=== PATIENT | male | born 1990 | race Caucasian/White ===

== ENCOUNTER 2024-07-18 15:32 | Emergency (ER) | payer OTHER ==
[~2024-07-18] VITALS: Ht 182.9 cm; Wt 75.3 kg
[2024-07-18] MEDS ORDERED: FLUORESCEIN SOD 1 EA STRP OS ONE (18:00)
[2024-07-18] MEDS ORDERED: TETRACAINE HCL 0.5% 4 ML BTL OS ONE (18:00)
[2024-07-18] MEDS ORDERED: ERYTHROMYCIN1 GM OP (19:24)
[2024-07-18] MEDS ORDERED: ERYTHROMYCIN 1 GM TUBE OD ONE (20:00)
[2024-07-18] MEDS ORDERED: DIPHTH,PERTUSS(ACELL),TET VAC 0.5 ML SYRINGE IM ONE (20:00)
[2024-07-18] MEDS ORDERED: SUBLOCADE300 MG/1.5 SQ (20:13)
[2024-07-18] MEDS ORDERED: ACETAMINOPHEN 500 MG TAB PO ONE (20:15)
[2024-07-18 20:52] VITALS: BP 116/75
== END 2024-07-18 20:54 | disposition home or self-care (01) ==
LOC: ED 15:32
DX: S05.02XA Injury of conjunctiva and corneal abrasion without foreign body, left eye, initial encounter (principal); W22.8XXA Striking against or struck by other objects, initial encounter
CPT/HCPCS: 90471; 90715; 99283-25; A9270

== ENCOUNTER 2024-11-27 22:24 | Emergency (ER) | payer BC ==
[~2024-11-27] VITALS: Ht 182.9 cm; Wt 76.1 kg
[~2024-11-27 22:24] MED LIST: ERYTHROMYCIN1 GM OP; SUBLOCADE300 MG/1.5 SQ
[2024-11-27] MEDS ORDERED: SUMATRIPTAN SU100 MG PO (22:48)
[2024-11-27 22:57] LABS: BASOPHILS 0.2 % (0.2-1.2); EOSINOPHILS 1.0 % (0.8-7.0); LYMPHOCYTES 19.5 % (21.8-53.1); MCH 32.0 PG (25.7-32.2); MCHC 34.1 g/dL (32.3-36.5); MCV 93.8 fL (79.0-92.2); MONOCYTES 5.6 % (5.3-12.2); NEUTROPHILS 73.3 % (34.0-67.9); RBC 4.35 M/uL (4.63-6.08)
[2024-11-27] MEDS ORDERED: METOPROLOL TARTRATE 5 MG/5 ML VIAL IV SCH (23:00)
[2024-11-27] MEDS ORDERED: LACTATED RINGER'S 1,000 ML IV ONE (23:15)
[2024-11-27 23:17] LABS: ALT (SGPT) 29.0 U/L (14-59); AST (SGOT) 22.0 U/L (15-37); GLOMERULAR FILTRATION RATE,EST 101.0 mL/min (>60); PROTEIN, TOTAL 7.8 g/dL (6.4-8.2); UREA NITROGEN 16.0 mg/dL (7-18)
[2024-11-27 23:35] LABS: AMPHETAMINES, URINE POSITIVE (NEGATIVE); BARBITURATES, URINE NEGATIVE (NEGATIVE); BENZODIAZEPINE, URINE NEGATIVE (NEGATIVE); CANNABINOID, URINE POSITIVE (NEGATIVE); COCAINE, URINE NEGATIVE (NEGATIVE); ECSTASY, URINE NEGATIVE (NEGATIVE); FENTANYL, URINE NEGATIVE (NEGATIVE); METHADONE, URINE NEGATIVE (NEGATIVE); OPIATES, URINE NEGATIVE (NEGATIVE); OXYCODONE, URINE NEGATIVE (NEGATIVE); PHENCYCLIDINE, URINE NEGATIVE (NEGATIVE)
[2024-11-28] MEDS ORDERED: ASPIRIN 81 MG CHEW PO ONE (01:30)
[2024-11-28] MEDS ORDERED: HEPARIN SOD,PORK IN 0.45% NACL 500 ML IV SCH (03:45)
[2024-11-28 03:54] LABS: INR 1.14 (0.80-1.30); PROTIME 13.9 Sec (11.2-14.2)
[2024-11-28 04:44] VITALS: BP 99/79
--- NOTE | 2024-11-29 21:41 | EKG ---
[facility] [address] [facility] [place] [address] Signed Sinus rhythm with frequent premature ventricular complexes in a pattern of bigeminy RSR' or QR pattern in V1 suggests right ventricular conduction delay Nonspecific ST and T wave abnormality Abnormal ECG When compared with ECG of 27-NOV-2024 22:42, RSR' pattern in V1 has replaced Nonspecific intraventricular conduction delay Confirmed by Nahomy Mae MD () on 11/29/2024 9:41:20 PM Electronically Signed By: NAHOMY MAE MD 11/29/242140 PATIENT NAME: STEVEN CHAPMAN Electrocardiogram DATE OF : 86 PHYSICIAN: NAHOMY MAE MD REPORT #: [id number] REPORT IS CONFIDENTIAL AND NOT TO BE RELEASED WITHOUT AUTHORIZATION
--- NOTE | 2024-11-29 21:43 | EKG ---
[facility] [address] [facility] [place] [address] Signed Sinus rhythm with occasional premature ventricular complexes Incomplete right bundle branch block Nonspecific ST abnormality Abnormal ECG When compared with ECG of 27-NOV-2024 22:54, No significant change was found Confirmed by Nahomy Mae MD () on 11/29/2024 9:43:14 PM Electronically Signed By: NAHOMY MAE MD 11/29/242142 PATIENT NAME: STEVEN CHAPMAN Electrocardiogram DATE OF : 86 PHYSICIAN: NAHOMY MAE MD REPORT #: [id number] REPORT IS CONFIDENTIAL AND NOT TO BE RELEASED WITHOUT AUTHORIZATION
--- NOTE | 2024-11-29 22:02 | EKG ---
[facility] [address] [facility] [place] [address] Signed Nonspecific intraventricular conduction delay Abnormal QRS-T angle, consider primary T wave abnormality Abnormal ECG No previous ECGs available Reconfirmed by Nahomy Mae MD () on 11/29/2024 10:02:28 PM Electronically Signed By: NAHOMY MAE MD 11/29/242139 Electronically Signed By: NAHOMY MAE MD 11/29/242201 PATIENT NAME: STEVEN CHAPMAN Electrocardiogram DATE OF : [birth year] PHYSICIAN: NAHOMY MAE MD REPORT #: [id number] REPORT IS CONFIDENTIAL AND NOT TO BE RELEASED WITHOUT AUTHORIZATION
== END 2024-11-28 04:45 | disposition short-term general hospital (02) ==
LOC: ED 22:24
PROVIDERS: Internal Medicine
DX: I21.4 Non-ST elevation (NSTEMI) myocardial infarction (principal); I48.91 Unspecified atrial fibrillation; G43.909 Migraine, unspecified, not intractable, without status migrainosus; Z79.899 Other long term (current) drug therapy
CPT/HCPCS: 36415; 71045; 80053; 80307; 84484; 85025; 85610; 85730; 93005; 93010; 96374; 96375; 99285-25; A9270; G0480; J1644; J7121

== ENCOUNTER 2025-01-16 15:05 | Emergency (ER) | payer OTHER, BC ==
[~2025-01-16] VITALS: Ht 182.9 cm; Wt 72.0 kg
[~2025-01-16 15:05] MED LIST changes: +ATORVASTATIN CA20 MG PO; +BUPROPION XL150 MG PO; +SUMATRIPTAN SU100 MG PO
--- OUTSIDE RECORDS SUMMARY | 2025-01-16 15:12 | XMS ---
PreManage Notification: STEVEN CHAPMAN Security Patient Care Assistant Events No recent Security Events currently on file CRITERIA MET - [facility] - 2 Visits in 30 Days CARE PROVIDERS There are no care providers on record at this time. Mirela has no Care Guidelines for this patient. Ariana VISIT COUNT (12 MO.) [address] [facility] TOTAL 4 NOTE: Visits indicate total known visits. ED/C VISIT TRACKING (12 MO.) 01/16/2025 15:[address] [facility] [place] TYPE: Emergency COMPLAINT: - OTJ OBRIEN INJURY 12/29/2024 13:[address] [facility] [place] TYPE: Emergency COMPLAINT: - HEAD PAIN DIAGNOSES: - Headache, unspecified - Other termite technician (current) drug therapy - Personal history of transient ischemic attack (TIA), and cerebral infarction without residual deficits 11/27/2024 22:[address] [facility] [place] TYPE: Emergency COMPLAINT: - HEADACHE DIAGNOSES: - Headache, unspecified - Migraine, unspecified, not intractable, without status migrainosus - Non-ST elevation (NSTEMI) myocardial infarction - Other prison (current) drug therapy - Unspecified atrial fibrillation 07/18/2024 15:[address] [facility] [place] TYPE: Emergency COMPLAINT: - EYE INJURY DIAGNOSES: - Injury of conjunctiva and corneal abrasion without foreign body, left eye, initial encounter - Ocular pain, left eye - Striking against or struck by other objects, initial encounter INPATIENT VISIT TRACKING (12 MO.) 11/28/2024 16:08 [facility] TYPE: Neurology DIAGNOSES: - Cerebral infarction, unspecified - Non-ST elevation (NSTEMI) myocardial infarction - Nontraumatic subarachnoid hemorrhage, unspecified - Opioid dependence, uncomplicated - Opioid use, unspecified, uncomplicated - Other stimulant use, unspecified, uncomplicated - Reversible cerebrovascular vasoconstriction syndrome - Unspecified atrial fibrillation - Unspecified systolic (congestive) heart failure - Subarachnoid Hemorrhage 11/28/2024 05:18 [facility] [place] TYPE: Intensive Care DIAGNOSES: - Alcohol abuse, uncomplicated - Nicotine dependence, other tobacco product, uncomplicated - Non-ST elevation (NSTEMI) myocardial infarction - Opioid dependence, uncomplicated - Unspecified atrial fibrillation - NSTEMI [email or web address]
[2025-01-16 17:24] VITALS: BP 110/67
== END 2025-01-16 17:26 | disposition home or self-care (01) ==
LOC: ED 15:05
DX: S80.12XA Contusion of left lower leg, initial encounter (principal); I25.2 Old myocardial infarction; Z79.899 Other long term (current) drug therapy; Z86.73 Personal history of transient ischemic attack (TIA), and cerebral infarction without residual deficits; W10.9XXA Fall (on) (from) unspecified stairs and steps, initial encounter
CPT/HCPCS: 73590; 99283

== ENCOUNTER 2025-03-31 10:12 | Emergency (ER) | payer BC ==
[~2025-03-31] VITALS: Ht 182.9 cm; Wt 71.3 kg
[2025-03-31 14:43] LABS: CORONAVIRUS COVID-19 AG NEGATIVE (NEGATIVE)
[2025-03-31 17:34] VITALS: BP 114/64
== END 2025-03-31 17:34 | disposition left against medical advice (07) ==
LOC: ED 10:12
PROVIDERS: Emergency Medicine
DX: R51.9 Headache, unspecified (principal); J02.9 Acute pharyngitis, unspecified; R05.9 Cough, unspecified; Z53.21 Procedure and treatment not carried out due to patient leaving prior to being seen by health care provider
CPT/HCPCS: 36415